=== PATIENT | male | born 1975 | race Caucasian/White ===

== ENCOUNTER 2022-03-21 18:32 | Emergency (ER) | payer BC ==
[2022-03-21 19:12] LABS: Absolute Lymphocytes (CBC) 1.6 K/uL (0.7-4.9); Hematocrit 37.5 % (39.6-49.0); Lymphocytes % 30.7 % (15.3-44.8); MPV 7.2 fL (7.6-11.3); RBC Red Blood Cell Count 4.41 M/uL (4.33-5.43)
[2022-03-21 19:23] LABS: BUN Blood Urea Nitrogen 13 mg/dL (7-18); Bicarbonate 24 mmol/L (21-32); Glucose Level 128 mg/dL (74-106); Potassium 3.3 mmol/L (3.5-5.1); Sodium Level 140 mmol/L (136-145); Troponin High Sensitivity 3.5 pg/mL (<58.9)
[2022-03-21 19:28] LABS: NT PRO-BNP < 5 pg/mL (<125)
--- NOTE | 2022-03-21 19:46 | RAD REPORT ---
EXAM DESCRIPTION: RAD - Chest Single View - 03/21/2022 7:35 pm CLINICAL HISTORY: CHEST PAIN COMPARISON: No comparisonsNo comparisons FINDINGS: Lines: None. Lungs: No evidence of edema or pneumonia. Pleural: No significant pleural effusions or pneumothorax. Cardiac: The heart size is within normal limits. Bones: No acute fractures. Other: IMPRESSION: No acute cardiopulmonary disease.
--- NOTE | 2022-03-21 20:09 | ER ---
Nurse's Notes [facility] Name: Nicolas Moran Age: 46 yrs Sex: Male : 1975 Arrival Date: 03/21/2022 Time: 18:34 Bed 19 Private MD: Diagnosis: Chest pain, unspecified Presentation: 03/21 18:48 Chief complaint: Patient states: Chest pain yesterday with aching jaw, last about 10 jl7 minutes, tele doc advised to be checked out. Denies current CP. Coronavirus screen: At this time, the client does not indicate any symptoms associated with coronavirus-19. Ebola Screen: No symptoms or risks identified at this time. Initial Sepsis Screen: Does the patient meet any 2 criteria? No. Patient's initial sepsis screen is negative. Does the patient have a suspected source of infection? No. Patient's initial sepsis screen is negative. Risk Assessment: Do you want to hurt yourself or someone else? Patient reports no desire to harm self or others. Onset of symptoms was March 20, 2022. 18:48 Method Of Arrival: Ambulatory jl7 18:48 Acuity: NUNO 3 jl7 Triage Assessment: 18:49 General: Appears in no apparent distress. uncomfortable, Behavior is calm, cooperative, jl7 appropriate for age. Pain: Denies pain. Cardiovascular: Rhythm is regular. Historical: - Allergies: 18:49 No Known Allergies; jl7 - Home Meds: 18:49 None [Active]; jl7 - PMHx: 18:49 None; jl7 - PSHx: 18:49 None; jl7 - Immunization history:: Client reports receiving the 2nd dose of the Covid vaccine. - Social history:: Smoking status: Patient denies any tobacco usage or history of. - Family history:: not pertinent. - Hospitalizations: : No recent hospitalization is reported. Screenin:50 Abuse screen: Denies threats or abuse. Denies injuries from another. Nutritional bp screening: No deficits noted. Tuberculosis screening: No symptoms or risk factors identified. Fall Risk None identified. Assessment: 18:50 General: SEE TRIAGE NOTE. bp 19:55 Reassessment: D dimer of 519. informed. mandy Vital Signs: 18:48 BP 146 / 101; Pulse 88; Resp 17; Temp 98.4; Pulse Ox 97% ; Weight 83.91 kg; Height 5 7 ft. 9 in. (175.26 cm); Pain 0/10; 19:27 BP 134 / 86; Pulse 81; Resp 18; Temp 98.5; Pulse Ox 99% on R/A; Pain 0/10; mandy 20:27 BP 120 / 79; Pulse 78; Resp 18; Temp 98.5; Pulse Ox 100% on R/A; Pain 0/10; mandy 18:48 Body Mass Index 27.32 (83.91 kg, 175.26 cm) 7 ED Course: 18:34 Patient arrived in ED. as 18:36 Dwight Britt MD is Attending Physician. rn 18:40 Richie Malave RN is Primary Nurse. bp 18:49 Triage completed. jl 18:49 Arm band placed on right wrist. EKG completed in triage. Results shown to MD. [facility] 18:50 Patient has correct armband on for positive identification. Bed in low position. Call bp light in reach. Side rails up X2. Client placed on continuous cardiac and pulse oximetry monitoring. NIBP monitoring applied. 18:50 Inserted saline lock: 20 gauge in right forearm, using aseptic technique. Blood bp collected. Patient maintains SpO2 saturation greater than 95% on room air. 19:18 Primary Nurse role handed off by Richie Malave RN mw2 19:21 Attending Physician role handed off by Dwight Britt MD kdr 19:21 Lino Head MD is Attending Physician. kdr 19:27 Dione Montero RN is Primary Nurse. mandy 19:36 XRAY Chest (1 view) In Process Unspecified. EDMS 20:27 No provider procedures requiring assistance completed. mandy 20:28 intact, bleeding controlled, No redness/swelling at site. Pressure dressing applied. mandy Administered Medications: No medications were administered Outcome: 20:09 Discharge ordered by . kdr 20:28 Condition: stable mandy 20:28 Discharged to home ambulatory. mandy 20:28 Discharge instructions given to patient, Instructed on discharge instructions, follow up and referral plans. Demonstrated understanding of instructions, follow-up care. 20:28 Patient left the ED. mandy Signatures: Dispatcher [employer] EDMS Lino Head MD MD kdr Martinez, Amelia as Dwight Britt MD MD rn Leal, Jahala, RN RN jl7 Richie Malave, RN RN bp Paty Suh mw2 Dione Montero, RN RN mandy
--- NOTE | 2022-03-21 20:10 | EDPHYS ---
Physician Documentation [facility] Name: Nicolas Moran Age: 46 yrs Sex: Male : 1975 Arrival Date: 03/21/2022 Time: 18:34 Bed 19 Private MD: ED Physician Lino Head HPI: 03/21 18:54 This 46 yrs old Male presents to ER via Ambulatory with complaints of Chest Pain, Jaw rn Pain. 18:54 The patient or guardian reports chest pain that is located primarily in the substernal rn area. Onset: yesterday. The pain radiates to Associated signs and symptoms: Pertinent positives: None. Pertinent negatives: abdominal pain, cough, diaphoresis, nausea, palpitations, shortness of breath, syncope, vomiting. The chest pain is described as a pressure. Duration: The patient or guardian reports a single episode, that lasted 10 minute(s). Modifying factors: The symptoms are alleviated by nothing. the symptoms are aggravated by nothing. Severity of pain: At its worst the pain was mild in the emergency department the pain has resolved. The patient has not experienced similar symptoms in the past. The patient has not recently seen a physician. Pt reports 10 min chest pain, pressure, substernal, assoc with jaw pain, at rest, never happened before, no pain today. Seen by [facility] and told to go to urgent care for EKG yesterday, waited until today. Asymptomatic today. No famhx of cardiac disease at his age. No trauma. No fever/cough/sob. . Historical: - Allergies: 18:49 No Known Allergies; jl7 - Home Meds: 18:49 None [Active]; jl7 - PMHx: 18:49 None; jl7 - PSHx: 18:49 None; jl7 - Immunization history:: Client reports receiving the 2nd dose of the Covid vaccine. - Social history:: Smoking status: Patient denies any tobacco usage or history of. - Family history:: not pertinent. - Hospitalizations: : No recent hospitalization is reported. ROS: 18:54 Constitutional: Negative for fever, chills, and weight loss, Eyes: Negative for injury, rn pain, redness, and discharge, Neck: Negative for injury, pain, and swelling, Cardiovascular: Negative for palpitations, and edema Respiratory: Negative for shortness of breath, cough, wheezing, and pleuritic chest pain, Abdomen/GI: Negative for abdominal pain, nausea, vomiting, diarrhea, and constipation, Back: Negative for injury and pain, MS/Extremity: Negative for injury and deformity, Skin: Negative for injury, rash, and discoloration, Neuro: Negative for headache, weakness, numbness, tingling, and seizure. Exam: 18:54 Constitutional: This is a well developed, well nourished patient who is awake, alert, rn and in no acute distress. Head/Face: Normocephalic, atraumatic. Eyes: Periorbital areas with no swelling, redness, or edema. Cardiovascular: Regular rate and rhythm. No pulse deficits. Respiratory: No increased work of breathing, no retractions or nasal flaring. Abdomen/GI: Soft, non-tender Skin: Warm, dry MS/ Extremity: Pulses equal, no cyanosis. Neuro: Awake and alert, GCS 15 Vital Signs: 18:48 BP 146 / 101; Pulse 88; Resp 17; Temp 98.4; Pulse Ox 97% ; Weight 83.91 kg; Height 5 jl7 ft. 9 in. (175.26 cm); Pain 0/10; 19:27 BP 134 / 86; Pulse 81; Resp 18; Temp 98.5; Pulse Ox 99% on R/A; Pain 0/10; mandy 20:27 BP 120 / 79; Pulse 78; Resp 18; Temp 98.5; Pulse Ox 100% on R/A; Pain 0/10; mandy 18:48 Body Mass Index 27.32 (83.91 kg, 175.26 cm) jl7 MDM: 18:36 Patient medically screened. rn 03/22 00:29 Data reviewed: vital signs, nurses notes, lab test result(s), radiologic studies. kdr 03/21 18:46 Order name: Basic Metabolic Panel; Complete Time: 19:34 rn 03/21 18:46 Order name: CBC with Diff; Complete Time: 20:08 rn 03/21 18:46 Order name: D-Dimer; Complete Time: 20:08 rn 03/21 18:46 Order name: NT PRO-BNP; Complete Time: 19:34 rn 03/21 18:46 Order name: Troponin HS; Complete Time: 19:34 rn 03/21 18:46 Order name: XRAY Chest (1 view); Complete Time: 20:08 rn 03/21 18:46 Order name: EKG; Complete Time: 18:47 rn 03/21 18:46 Order name: Cardiac monitoring; Complete Time: 18:47 rn 03/21 18:46 Order name: EKG - Nurse/Tech; Complete Time: 18:47 rn 03/21 18:46 Order name: IV Saline Lock; Complete Time: 18:59 rn 03/21 18:46 Order name: Labs collected and sent; Complete Time: 18:59 rn 03/21 18:46 Order name: O2 Per Protocol; Complete Time: 18:47 rn 03/21 18:46 Order name: O2 Sat Monitoring; Complete Time: 18:47 rn Administered Medications: No medications were administered Disposition Summary: 03/21/22 20:09 Discharge Ordered Location: Home kdr Problem: new kdr Symptoms: have improved kdr Condition: Stable kdr Diagnosis - Chest pain, unspecified kdr Followup: kdr - With: Private Physician - When: 2 - 3 days - Reason: If symptoms return, Further diagnostic work-up, Recheck today's complaints, Continuance of care, Re-evaluation by your physician Discharge Instructions: - Discharge Summary Sheet kdr - Nonspecific Chest Pain, Adult kdr Forms: - Medication Reconciliation Form kdr - Thank You Letter kdr Signatures: Dispatcher [employer] Lino Aranda MD MD kdr Dwight Britt MD MD rn Theo Arthur, RN RN jl7
[2022-03-21 21:11] VITALS: TEMP 98.5
[2022-03-21 21:12] VITALS: BP 120/79; O2SAT 100
--- NOTE | 2022-03-23 14:36 | EKG ---
Test Date: 2022-03-21 Test Time: 18:38:35 [employer]: KATI MEASUREMENT RESULTS: Intervals: Rate: 81 AL: 118 QRSD: 88 QT: 362 QTc: 420 [place]: P: 32 AL: 118 QRS: 55 T: 62 INTERPRETIVE STATEMENTS: Normal sinus rhythm Normal ECG No previous ECG available for comparison Electronically Signed On 03-23-22 14:32:36 CDT by Deonte Delatorre
== END 2022-03-21 20:28 | disposition home or self-care (01) ==
LOC: ER 18:32
DX: R07.9 Chest pain, unspecified (principal)
CPT/HCPCS: 36415; 71045; 80048; 83880; 84484; 85025; 85379; 93005; 99284